=== PATIENT | male | born 1975 | race Caucasian/White ===

== ENCOUNTER 2020-11-12 17:20 | Emergency (ER) | payer OTHER ==
[2020-11-12 17:30] VITALS: BP 145/96; PULSE 84; TEMP 97.9; BMI 25.7
[2020-11-12] MEDS ORDERED: DIPHTH,PERTUSS(ACELL),TET 0.5 ML DISP.SYRIN IM ONE ×2 (17:46→17:50)
== END 2020-11-12 18:05 | disposition home or self-care (01) ==
LOC: JERFT 17:20 → JER 17:20 → JERFT 18:05
PROC: 0HQGXZZ Repair Left Hand Skin, External Approach (ICD-10-PCS; principal; 2020-11-12)
PROC: 3E0234Z Introduction of Serum, Toxoid and Vaccine into Muscle, Percutaneous Approach (ICD-10-PCS; 2020-11-12)
DX: S60.012A Contusion of left thumb without damage to nail, initial encounter (principal)
CPT/HCPCS: 90715; 99284-25

== ENCOUNTER 2020-11-16 18:55 | Emergency (ER) | payer OTHER ==
[2020-11-16 19:22] VITALS: BP 131/89; PULSE 70; TEMP 97; BMI 25.7
== END 2020-11-16 20:10 | disposition home or self-care (01) ==
LOC: JERFT 18:55 → JER 18:55 → JERFT 20:10
DX: Z48.02 Encounter for removal of sutures (principal)
CPT/HCPCS: 99281-25

== ENCOUNTER 2020-11-20 19:11 | Emergency (ER) | payer OTHER ==
[2020-11-20 19:34] VITALS: BP 128/75; PULSE 85; TEMP 97.8; BMI 23.7
== END 2020-11-20 20:17 | disposition home or self-care (01) ==
LOC: JERFT 19:11
DX: S61.012A Laceration without foreign body of left thumb without damage to nail, initial encounter (principal); Z48.02 Encounter for removal of sutures
CPT/HCPCS: 99281-25